=== PATIENT | female | born 1950 | race Caucasian/White ===

== ENCOUNTER 2019-03-26 21:44 | Outpatient (REF) | payer SELFPAY ==
[2019-03-26 20:25] LABS: TSH 8.19 uIU/mL (0.36-3.74)
== END 2019-03-26 22:04 ==
LOC: NCHCN 21:44
PROVIDERS: Visit Provider Nurse Practitioner Family
DX: E03.9 Hypothyroidism, unspecified (principal)
CPT/HCPCS: 84443

== ENCOUNTER 2019-04-28 18:35 | Outpatient (REF) | payer MEDICARE, SELFPAY ==
[2019-04-28 19:37] LABS: TSH 3.83 uIU/mL (0.36-3.74)
== END 2019-04-28 18:55 ==
LOC: NCHCN 18:35
PROVIDERS: PCP Nurse Practitioner Family; Visit Provider Nurse Practitioner Family
DX: E03.9 Hypothyroidism, unspecified (principal)
CPT/HCPCS: 84443

== ENCOUNTER 2019-10-28 10:09 | Outpatient (REF) | payer OTHER, SELFPAY ==
[2019-10-28 19:50] LABS: TSH 1.43 uIU/mL (0.36-3.74)
== END 2019-10-28 10:29 ==
LOC: NCHCN 10:09
PROVIDERS: PCP Nurse Practitioner Family; Visit Provider Nurse Practitioner Family
DX: E03.9 Hypothyroidism, unspecified (principal)
CPT/HCPCS: 84443

== ENCOUNTER 2019-11-06 20:55 | Outpatient (REF) | payer OTHER, SELFPAY ==
[2019-11-06 19:58] LABS: Hemoglobin A1C 5.7 % (3.8-5.6)
== END 2019-11-06 21:15 ==
LOC: NCHCN 20:55
PROVIDERS: PCP Nurse Practitioner Family; Visit Provider Nurse Practitioner Family
DX: R73.9 Hyperglycemia, unspecified (principal)
CPT/HCPCS: 83036

== ENCOUNTER 2019-11-19 11:19 | Outpatient (REF) | payer OTHER, SELFPAY | END 2019-11-19 11:39 | LOC: NCHCN 11:19 | PROVIDERS: PCP Nurse Practitioner Family; Visit Provider Nurse Practitioner Family | DX: B37.0 Candidal stomatitis (principal) | CPT/HCPCS: 87070 ==

== ENCOUNTER 2019-12-31 09:53 | Outpatient (REF) | payer OTHER, SELFPAY ==
[2019-12-31 21:32] LABS: Calculated LDL 125 mg/dL (<100); Cholesterol 215 mg/dL (<200); HDL Cholesterol 64 mg/dL (40-60); Triglyceride 134 mg/dL (<150)
== END 2019-12-31 10:13 ==
LOC: NCHCN 09:53
PROVIDERS: PCP Nurse Practitioner Family; Visit Provider Nurse Practitioner Family
DX: E03.9 Hypothyroidism, unspecified (principal); Z13.6 Encounter for screening for cardiovascular disorders
CPT/HCPCS: 80061

== ENCOUNTER 2020-06-16 18:51 | Outpatient (REF) | payer OTHER, SELFPAY ==
[2020-06-16 20:56] LABS: ALT 93 U/L (14-59); AST 53 U/L (15-37); Albumin 3.6 g/dL (3.4-5.0); Alkaline Phosphatase 421 U/L (46-116); Anion Gap 5.2 mmol/L (3-11); BUN 19 mg/dL (7-18); Bilirubin, Total 0.4 mg/dL (0.2-1.0); CO2 28.8 mmol/L (21.0-32.0); CREATININE 1.16 mg/dL (0.55-1.02); Calcium 8.9 mg/dL (8.5-10.1); Chloride 106 mmol/L (98-107); Estimated GFR 46.46 (mL/min/1.73m2); Glucose 105 mg/dL (74-106); Magnesium 2.1 mg/dL (1.8-2.4); Potassium 4.3 mmol/L (3.5-5.1); Sodium 140 mmol/L (136-145); TSH (W/Ref FT4) 1.58 uIU/mL (0.36-3.74); Total Protein 6.9 g/dL (6.4-8.2)
[2020-06-17 16:20] LABS: Rheumatoid Factor <8.6 IU/mL (<12.0)
== END 2020-06-16 19:11 ==
LOC: NCHCN 18:51
PROVIDERS: PCP Nurse Practitioner Family; Visit Provider Physician Assistant
DX: L40.9 Psoriasis, unspecified (principal); M25.59 Pain in other specified joint; R94.6 Abnormal results of thyroid function studies
CPT/HCPCS: 80053; 83735; 84443; 86140; 86431

== ENCOUNTER 2020-06-24 08:00 | Outpatient (REF) | payer OTHER, SELFPAY ==
[2020-06-24 16:21] LABS: Abs Immature Grans 0.02 10^3/uL (0.0-0.06); Absolute Basophil Count 0.04 10^3/uL (0.0-0.2); Absolute Eosinophil Count 0.34 10^3/uL (0.0-0.7); Absolute Neutrophil Count 4.12 10^3/uL (1.2-6.7); Basophils % 0.7; Eosinophils % 5.6; HCT 44.1 % (36.0-46.0); Immature Grans % 0.3; Lymphocytes % 16.6; MCH 30.6 pg (27.0-33.0); MCHC 31.7 % (32.0-36.0); MCV 96.3 fL (80-95); MPV 10.6 fL (8.0-11.0); Monocytes % 8.3; Neutrophils % 68.5; Nucleated RBC 0 %; Platelet Count 300 10^3/uL (130-400); RBC 4.58 10^6/uL (3.93-5.22); RDW 13.7 % (11.7-14.6); RDW-SD 48.6 fL; WBC 6.02 10^3/uL (4.4-10.8)
[2020-06-25 07:47] LABS: ESR 38 mm/hr (<30)
[2020-06-25 12:59] LABS: Ferritin 224 ng/mL (8-252); GGT 327 U/L (5-55)
[2020-06-25 13:17] LABS: Iron 92 ug/dL (50-170); Total Iron Binding Capacity 257 ug/dL (250-450); Transferrin Sat 36 % (15-50)
[2020-06-28 12:09] LABS: Smooth Muscle Ab Screen Negative (Negative)
[2020-06-28 12:15] LABS: Hepatitis A Antibody IgM Negative (Negative); Hepatitis B Core Antibody Negative (Negative); Hepatitis B surface Ag Negative (Negative); Hepatitis C Ab w Rflx HCV PCR Negative (Negative)
[2020-06-28 12:54] LABS: Mitochondrial Ab, M2 0.2 U
[2020-06-28 15:10] LABS: ANA Interpretation Positive (Negative); ANA Titer Pattern 1:640 Homogeneous
== END 2020-06-25 00:19 | disposition home or self-care (01) ==
LOC: NCHCN 08:00
PROVIDERS: PCP Nurse Practitioner Family; Visit Provider Physician Assistant
DX: R74.8 Abnormal levels of other serum enzymes (principal)
CPT/HCPCS: 83516; 85652; 86704; 86709; 86803; 87340; 82728; 82977; 83540; 83550; 85025; 86038; 86255

== ENCOUNTER 2021-01-05 16:45 | Outpatient (REF) | payer OTHER, SELFPAY ==
--- NOTE | 2021-01-05 09:45 | PAPFT_PTH ---
PATIENT: Meena Boston LOC: [facility]#:[id number] AGE/SX: 70/F ROOM: RE01/05/[address]: Harjit Navarro : 1950 BED: DIS: 01/05/2021 SPEC #: [id number] RECD: 01/06/21 13:14 STATUS: ARELY REQ #: [id number] JOSHUA: 01/05/21 09:[address]: Roopa Navarro DEPT: [facility] Cytology RECD BY: Lorenza De Souza ENTERED: 01/06/21 13:15 SP TYPE: PAPFT OTHR DR: Kathya Stevens Tissues: 1 - CX/ENDOCX FOR PAP SMEARS Procedures: PAP THIN PREP/[facility] Screening HPV DNA PROBE Comments: [id number]
[2021-01-05 20:36] LABS: TSH 3.34 uIU/mL (0.36-3.74)
== END 2021-01-05 16:46 | disposition home or self-care (01) ==
LOC: NCHCN 16:45
PROVIDERS: PCP Nurse Practitioner Family; Visit Provider Nurse Practitioner Family
DX: E03.9 Hypothyroidism, unspecified (principal); Z11.51 Encounter for screening for human papillomavirus (HPV); Z01.419 Encounter for gynecological examination (general) (routine) without abnormal findings; Z12.4 Encounter for screening for malignant neoplasm of cervix; N88.8 Other specified noninflammatory disorders of cervix uteri
CPT/HCPCS: 88142; 84443; 87624

== ENCOUNTER 2021-02-08 12:05 | Outpatient (REF) | payer OTHER, SELFPAY ==
[2021-02-10 11:53] LABS: COVID-19 RT-PCR UVMMC Result Negative (Negative)
== END 2021-02-08 12:06 | disposition home or self-care (01) ==
LOC: NCHCN 12:05
PROVIDERS: PCP Nurse Practitioner Family; Referring Provider Nurse Practitioner Family; Visit Provider Nurse Practitioner Family
DX: Z20.822 Contact with and (suspected) exposure to COVID-19 (principal)
CPT/HCPCS: U0003

== ENCOUNTER 2022-01-03 19:00 | Outpatient (REF) | payer OTHER, SELFPAY ==
[2022-01-03 20:28] LABS: TSH 2.45 uIU/mL (0.36-3.74)
== END 2022-01-03 19:01 | disposition home or self-care (01) ==
LOC: NCHCN 19:00
PROVIDERS: PCP Nurse Practitioner Family; Visit Provider Nurse Practitioner Family
DX: E03.9 Hypothyroidism, unspecified (principal)
CPT/HCPCS: 84443

== ENCOUNTER 2023-01-04 10:54 | Outpatient (REF) | payer MEDICARE, SELFPAY ==
[2023-01-04 20:02] LABS: Calculated LDL 140 mg/dL (<100); Cholesterol 234 mg/dL (<200); HDL Cholesterol 75 mg/dL (40-60); TSH 5.65 uIU/mL (0.36-3.74); Triglyceride 95 mg/dL (<150)
== END 2023-01-04 10:55 | disposition home or self-care (01) ==
LOC: NCHCN 10:54
PROVIDERS: PCP Nurse Practitioner Family; Visit Provider Nurse Practitioner Family
DX: E03.9 Hypothyroidism, unspecified (principal); R73.03 Prediabetes; E78.89 Other lipoprotein metabolism disorders
CPT/HCPCS: 80061; 84443

== ENCOUNTER 2023-03-05 16:09 | Outpatient (REF) | payer MEDICARE, SELFPAY ==
[2023-03-05 19:42] LABS: TSH 1.24 uIU/mL (0.36-3.74)
== END 2023-03-05 16:10 | disposition home or self-care (01) ==
LOC: NCHCN 16:09
PROVIDERS: PCP Nurse Practitioner Family; Visit Provider Nurse Practitioner Family
DX: E03.9 Hypothyroidism, unspecified (principal)
CPT/HCPCS: 84443

== ENCOUNTER 2024-07-28 15:04 | Outpatient (REF) | payer MEDICARE, SELFPAY ==
[2024-07-28 19:19] LABS: ALT 98 U/L (14-59); AST 48 U/L (15-37); Albumin 3.6 g/dL (3.4-5.0); Alkaline Phosphatase 302 U/L (46-116); Anion Gap 6.7 mmol/L (3-11); BUN 10 mg/dL (7-18); CO2 30.3 mmol/L (21.0-32.0); Calculated LDL 115 mg/dL (<100); Chloride 106 mmol/L (98-107); Cholesterol 208 mg/dL (<200); Estimated GFR 59.86 (mL/min/1.73m2); Glucose 125 mg/dL (74-106); HDL Cholesterol 64 mg/dL (>or=50); Potassium 4.3 mmol/L (3.5-5.1); Sodium 143 mmol/L (136-145); Triglyceride 147 mg/dL (<150)
== END 2024-07-28 15:05 | disposition home or self-care (01) ==
LOC: NCHCN 15:04
PROVIDERS: PCP Nurse Practitioner Family; Visit Provider Nurse Practitioner Family
DX: E78.5 Hyperlipidemia, unspecified (principal)
CPT/HCPCS: 80053; 80061

== ENCOUNTER 2025-01-28 20:49 | Outpatient (REF) | payer MEDICARE, SELFPAY ==
[2025-01-28 21:41] LABS: TSH 2.21 uIU/mL (0.36-3.74)
== END 2025-01-28 20:50 | disposition home or self-care (01) ==
LOC: LBN 20:49
PROVIDERS: PCP Nurse Practitioner Family; Visit Provider Nurse Practitioner Family
DX: E03.9 Hypothyroidism, unspecified (principal)
CPT/HCPCS: 84443